=== PATIENT | female | born 1975 | race Caucasian/White ===

== ENCOUNTER → 2017-01-31 | Outpatient (CLI) | payer BC ==
--- NOTE | 2017-01-31 16:12 | DI ---
Indication: ITS.REASON: M79.672 PAIN IN LEFT FOOT PROCEDURE: ANKLE LEFT 3 VIEW: Encounter: Initial Comparison: None Findings: There is no acute fracture, dislocation or malalignment identified. Small inferior calcaneal spur. Impression: No acute osseous abnormality. .
--- NOTE | 2017-01-31 16:13 | DI ---
Indication: ITS.REASON: M79.672 PAIN IN LEFT FOOT PROCEDURE: FOOT LEFT 3 VIEWS: Encounter: Initial Comparison: None Findings: There is no acute fracture, dislocation or malalignment identified. Impression: No acute osseous abnormality. .
== END ==
LOC: IMA 15:22
PROVIDERS: ATTEND Family Medicine
DX: M79.672 Pain in left foot (principal); M77.32 Calcaneal spur, left foot

== ENCOUNTER → 2017-02-12 | Outpatient (CLI) | payer BC ==
--- NOTE | 2017-02-13 08:26 | DI ---
Indication: ITS.REASON: M54.5 LOW BACK PAIN PROCEDURE: LUMBAR SPINE COMP W/O BEND: Encounter: Initial Comparison: None Findings: Alignment of the lumbar spine is within normal limits. The oblique views are unremarkable. Vertebral body heights and disk spaces are normal. No significant degenerative change. Impression: No acute osseous abnormality. .
== END ==
LOC: IMA 17:27
PROVIDERS: ATTEND Family Medicine
DX: M54.5 Low back pain (principal)

== ENCOUNTER → 2017-03-13 | Outpatient (CLI) | payer BC ==
[2017-03-13 18:17] LABS: BASOPHILS # (AUTO) 0.1 T/MM3 (0-0.2); BASOPHILS % (AUTO) 0.7 % (0-2); EOSINOPHILS # (AUTO) 0.4 T/MM3 (0-0.5); EOSINOPHILS % (AUTO) 4.5 % (0-4); HCT - HEMATOCRIT 34.6 % (36-46); HGB - HEMOGLOBIN 10.5 GM/DL (12-16); IMMATURE GRANULOCYTE # (AUTO) 0.03 T/MM3 (0.00-0.03); IMMATURE GRANULOCYTE % (AUTO) 0.4 % (0.0-0.5); LYMPHOCYTES # (AUTO) 2.4 T/MM3 (1-4.8); LYMPHOCYTES % (AUTO) 27.7 % (23-45); MEAN CORPUSCULAR HGB 23.3 UUG (26-34); MEAN CORPUSCULAR HGB CONC(MCHC 30.3 GM/DL (31-37); MEAN CORPUSCULAR VOLUME 76.7 UM3 (80-100); MEAN PLATELET VOLUME 9.3 UM3 (9.4-12.4); MONOCYTES # (AUTO) 0.7 T/MM3 (0-0.8); MONOCYTES % (AUTO) 7.6 % (0-9.0); NEUTROPHILS #(AUTO)-ABSOLUTE 5.1 T/MM3 (1.8-7.7); NEUTROPHILS % (AUTO) 59.1 % (33-66); RED BLOOD COUNT 4.51 M/MM3 (4.00-5.20); WBC - WHITE BLOOD COUNT 8.5 T/MM3 (4.5-11.0)
[2017-03-14 03:06] LABS: FERRITIN 4.79 NG/ML (6-137)
== END ==
LOC: LAB 17:54
PROVIDERS: ATTEND Family Medicine
DX: D50.9 Iron deficiency anemia, unspecified (principal)
CPT/HCPCS: 36415; 82728; 83540; 83550; 85025

== ENCOUNTER 2017-03-28 05:49 | Day surgery (SDC) | payer BC ==
[2017-03-28] VITALS (14 sets, daily range): BP systolic 93–132; BP diastolic 52–75; PULSE 56–76; RESP 12–26; TEMP 97–98.3; O2SAT 96–99; Ht 171.4 cm; Wt 123.8 kg
[~2017-03-28] VITALS: Ht 171.4 cm; Wt 123.8 kg
[~2017-03-28 05:49] MED LIST: ALBU8.5H INH; CETI-269 PO; IRON
[2017-03-28] MEDS ORDERED: LIDOCAINE 1% (10mg/ml) 2ml SDV INJ ONE (06:00)
[2017-03-28] MEDS ORDERED: LR 1,000 ML IV SCH (06:00)
[2017-03-28 06:23] LABS: BASOPHILS # (AUTO) 0.1 T/MM3 (0-0.2); BASOPHILS % (AUTO) 0.9 % (0-2); EOSINOPHILS # (AUTO) 0.5 T/MM3 (0-0.5); EOSINOPHILS % (AUTO) 4.9 % (0-4); HCT - HEMATOCRIT 38.2 % (36-46); HGB - HEMOGLOBIN 11.7 GM/DL (12-16); IMMATURE GRANULOCYTE # (AUTO) 0.07 T/MM3 (0.00-0.03); IMMATURE GRANULOCYTE % (AUTO) 0.7 % (0.0-0.5); LYMPHOCYTES # (AUTO) 2.3 T/MM3 (1-4.8); MEAN CORPUSCULAR HGB CONC(MCHC 30.6 GM/DL (31-37); MEAN CORPUSCULAR VOLUME 78.3 UM3 (80-100); MEAN PLATELET VOLUME 9.4 UM3 (9.4-12.4); MONOCYTES # (AUTO) 0.9 T/MM3 (0-0.8); MONOCYTES % (AUTO) 8.3 % (0-9.0); NEUTROPHILS #(AUTO)-ABSOLUTE 6.6 T/MM3 (1.8-7.7); NEUTROPHILS % (AUTO) 63.2 % (33-66); RED BLOOD COUNT 4.88 M/MM3 (4.00-5.20); WBC - WHITE BLOOD COUNT 10.4 T/MM3 (4.5-11.0)
[2017-03-28] MEDS ORDERED: IBUP-1724 PO (06:26)
[2017-03-28 06:32] LABS: ANION GAP 11 MEQ/L (5-15); BUN/CREATININE RATIO 21 RATIO (6-26); CALCIUM 8.5 MG/DL (8.4-10.2); CHLORIDE 108 MEQ/L (98-107); CO2 - CARBON DIOXIDE 26 MEQ/L (22-30); CREATININE 0.8 MG/DL (0.7-1.2); GLOMERULAR FILTRATION RATE 79; GLUCOSE 84 MG/DL (65-110); POTASSIUM 3.8 MEQ/L (3.6-5); SODIUM 145 MEQ/L (134-144)
[2017-03-28 06:35] LABS: BLOOD, URINE NEGATIVE (NEGATIVE); COLOR,URINE YELLOW (YELLOW); LEUKOCYTE ESTERASE ,URINE NEGATIVE (NEGATIVE); NITRITE,URINE NEGATIVE (NEGATIVE); UROBILINOGEN,URINE 0.2 EU/DL (NORMAL)
--- NOTE | 2017-03-28 06:38 | ANESPREOP ---
Anesthesia Record Date and Time DATE: 03/28/17 TIME: 06:35 Proposed Surgical Procedure HYSTEROSCOPY/ D&C/ ENDOMETRIAL ABLATION Allergies: Coded Allergies: No Known Drug Allergies (Verified Allergy, Unknown, 03/28/17) Ht/Wt/BMI Height: 5 ' 7.50 " Weight: 123.800 kg BMI: 42.1 kg/m2 Vital Signs Date Time Temp Pulse Resp B/P Pulse Ox O2 Delivery O2 Flow Rate FiO2 03/28/17 06:03 98.3 76 14 132/70 97 Room Air Medications Inpatient Medications Current Medications Medications (Trade) Dose Ordered Sig/Raissa Start Time Stop Time Status Last Admin Dose Admin Lactated Ringer's (Lactated Ringers) 1,000 ml @ 100 mls/hr Q10H 03/28/17 06:00 Albuterol Sulfate (Proair HFA 90 mcg/actuation) 8.5 Gm Hfa.aer.ad, 1 PUFF INH Q4H PRN for PRN ORDERS, (Reported) Last Taken: on Unknown Date & Time Cetirizine HCl (Cetirizine HCl) 10 Mg Tablet, 1 TAB PO DAILY, (Reported) Last Taken: on 03/27/172229 Ibuprofen (Ibuprofen) 200 Mg Tablet, 2 TAB PO Q4H PRN for PAIN, (Reported) Last Taken: on 03/27/172229 [Iron ] Unknown Strength , Unknown Dose, ( Reported) Last Taken: on 03/27/17 0730 Currently on Beta Boom: No Medical/Surgical History Anesthesia PMH: Reports: Asthma (INHALER PRN), Pneumonia ( A CHILD), Denies: *Diabetes, Anesthesia Reactions (NO KNOWN AIRWAY ISSUES), Arthritis, Blood Transfusion Reac, Cancer, Clotting Problems, Glaucoma, Malignant Hyperthermia, Renal Disease, Sleep Apnea, Thyroid Disease Smoking Status: Never smoker Has pt. smoked today?: No Use Chewing Tobacco?: No Second Hand Exposure: No Substance Use Type: does not use Alcohol Intake: none HX of Last Menstrual Period: 03-03-17 Past Surgical History Orthopedic Surgeries: Yes - RIGHT KNEE SCOPE Abdominal Surgeries: Yes - APPY Genitourinary Surgeries: Cardiac Surgeries: Endocrine Surgeries: Reproductive Surgeries: Yes - C SECTION; TUBAL LIGATION Neurological Surgeries: Ear Surgeries: Nose Surgeries: Throat Surgeries: Other Surgeries: Anesthesia Adverse Reactions: FOUND none Hx of Motion Sickness: Yes Pertinent Findings Laboratory Tests 03/28/17 06:14 Test 03/28/17 06:14 Physical Exam Respiratory: Lungs clear Cardiovascular: FOUND Regular rate, rhythm Airway Assessment Mallampati Score: II TMD: 3 Fingerbreadths Neck Extension: Good Overall Assessment: No Airway Concerns ASA: 2 Plan Anesthesia Plan: LMA Discussion Discussed risks/options/alternatives of anesthesia and questions answered. Patient consents. Nursing pain assessment noted. Attestation Statement Prior to the delivery of any anesthetic medication, I examined the patient, developed the plan, obtained the patient's consent and discussed the risk and benefits of the procedure with the patient/guardian. DINORA CHAU March 28, 2017 06:38
[2017-03-28] MEDS ORDERED: MIDAZOLAM 2mg/2ml INJECTION IV ONE (06:45)
[2017-03-28] MEDS ORDERED: SCOPOLAMINE 1.5 MG PATCH TD ONE (06:45)
[2017-03-28] MEDS ORDERED: FAMOTIDINE 20mg in NS 50ml IV ONE (06:45)
[2017-03-28] MEDS ORDERED: FENTANYL 100mcg/2ml INJECTION ONE (07:11)
[2017-03-28] MEDS ORDERED: PROPOFOL 200mg 20 ML IV ONE (07:11)
[2017-03-28] MEDS ORDERED: LIDOCAINE 2% (20mg/ml) 5ml PF SDV ONE (07:11)
[2017-03-28] MEDS ORDERED: PROPOFOL 500mg 50 ML IV ONE (07:11)
[2017-03-28] MEDS ORDERED: KETOROLAC 30mg/ml INJECTION IV ONE (07:15)
--- NOTE | 2017-03-28 08:12 | GYNOPNOTE1 ---
COMPRESSOR OPERATOR Postoperative Note Date of Operation: 03/28/17 Preoperative Diagnosis: Menorrhagia Postoperative Diagnosis: Same as Preoperative Procedure: Hysteroscopy with D&C, Endometrial Ablation Surgeon: Kandy Mcclendon MD Anesthesia Provider: Osei Schulte CRNA Anesthesia Type: TIVA KANDY MCCLENDON MD March 28, 2017 08:12
[2017-03-28] MEDS ORDERED: ONDANSETRON 4mg/2ml INJECTION IV PRN (08:15)
[2017-03-28] MEDS ORDERED: FENTANYL 100mcg/2ml INJECTION IV PRN (08:15)
[2017-03-28] MEDS ORDERED: HYDROCODONE/APAP 5 mg/325 mg TABLET PO PRN (08:15)
[2017-03-28] MEDS ORDERED: MORPHINE SULFATE 4 MG SYRINGE IV PRN (08:15)
[2017-03-28] MEDS ORDERED: IBUPROFEN 800 MG TABLET PO PRN (08:15)
[2017-03-28] MEDS ORDERED: METOCLOPRAMIDE 10mg/2ml INJECTION IV PRN (08:15)
--- NOTE | 2017-03-28 08:50 | ANESPO ---
Post-Op Note Date 03/28/17 Time: 08:50 Status Pt Participated in Evaluation: Pt participated in person Vital Signs Date Time Temp Pulse Resp B/P Pulse Ox O2 Delivery O2 Flow Rate FiO2 03/28/17 08:40 74 26 106/58 96 Room Air 03/28/17 08:25 2.00 03/28/17 08:17 97.5 Respiratory Function: Airway patent, Regular respirations Cardiovascular Function: Regular pulse Mental Status: Alert/oriented Pain Level Intensity: 2 Hydration: Taking po fluids Complications during Recovery None apparent Follow-Up Instructions Instructions Per Surgeon DANIEL DENNIS CRNA March 28, 2017 08:50
--- NOTE | 2017-03-28 14:04 | OPNOTEF ---
DATE OF OPERATION 03/28/2017 PREOPERATIVE DIAGNOSIS Menorrhagia. POSTOPERATIVE DIAGNOSIS Menorrhagia. PROCEDURE Diagnostic hysteroscopy, D&C with frozen section, endometrial ablation (Stephanie) SURGEON Kandy Dueñas MD ANESTHESIA TIVA INK JET OPERATOR Osei Schulte CRNA EBLuis Minimal OPERATIVE FINDINGS Normal uterine cavity with shaggy endometrium, benign endometrium per frozen section report. 0 DESCRIPTION OF PROCEDURE Ms. Raya was brought to the OR and placed on the OR table in the comfortable supine position. She was given IV analgesia with good airway control. She was then placed in standard lithotomy position. I performed a bimanual exam. The perineum and vagina were prepped and draped in the usual sterile fashion and the bladder drained with a sterile in-and-out catheter. The cervix was visualized with a freeway speculum. It was grasped with an Allis clamp. The uterine cavity sounded to a depth of 10.5 cm. The cervix sounded to a depth of 5.5 cm. The cervix was then serially dilated, then small sharp uterine curette was inserted. The uterus was curetted sharply in all four quadrants. Polyp forceps were inserted and a moderate amount of tissue obtained. This was sent to frozen section. While we awaited the results of the frozen section, the 30 degree hysteroscope was inserted into the uterine cavity. The cavity was filled with sterile water. Findings were as described above. Ostia were seen bilaterally. There remained some polypoid and shaggy endometrium even after the curetting. The hysteroscope was removed after report from Dr. Priest. We then proceeded with the Stephanie. The device was set to 5 cm and prepared per functional tester's instructions. It was inserted and the balloon filled to seal the cervix. The tests were performed and went without difficulty. Then the 120 second therapy cycle also went without difficulty. The balloon was deflated and the device removed. We watched carefully for hemostasis which remained under good control. We then removed our retractor and returned Ms. Raya to the supine position. She was awakened from anesthesia and transferred to recovery in stable condition. JOSE
== END 2017-03-28 10:05 | disposition home or self-care (01) ==
LOC: SCU 05:49
PROVIDERS: ATTEND Obstetrics & Gynecology
DX: N92.0 Excessive and frequent menstruation with regular cycle (principal); N93.8 Other specified abnormal uterine and vaginal bleeding; Z98.51 Tubal ligation status; G43.909 Migraine, unspecified, not intractable, without status migrainosus; J45.909 Unspecified asthma, uncomplicated; Z79.899 Other long term (current) drug therapy
CPT/HCPCS: 36415; 58563; 80048; 81003; 81025; 85025; 86850; 86900; 86901; J1885; J2250; J2704; J3010; J7120